=== PATIENT | male | born 1995 | race African-American/Black ===

== ENCOUNTER 2017-11-23 19:16 | Emergency (ER) | payer OTHER ==
[2017-11-23] MEDS ORDERED: LIDOCAINE 1% INJ-PF (10 MG/ML) 30 ML SDV INJ ONE (21:11)
--- NOTE | 2017-11-23 21:17 | ER Document Report ---
ED Wound - General Chief Complaint: Laceration Stated Complaint: FINGER LACERATION TO BOTH HANDS Time Seen by Provider: 11/23/17 20:43 Information source: Patient - HPI Patient complains to provider of: Laceration Occurred: Just prior to arrival Notes: Patient is here with complaints of finger laceration. He states that he was holding down a ramp when his friend cut the wrap with a razor blade excellently cutting his left index and right middle finger. Bleeding is controlled. No numbness, tingling, weakness. Tetanus is up-to-date. He denies any fevers. He denies any nausea, vomiting, diarrhea. He denies any other injuries. No chest pain or shortness of breath. Mild pain. No other complaints, no other injuries. Past Medical History - Social History Smoking Status: Never Smoker Chew tobacco use (# tins/day): No Frequency of alcohol use: None Drug Abuse: None Family History: Reviewed & Not Pertinent Patient has suicidal ideation: No Patient has homicidal ideation: No Renal/ Medical History: Denies: Hx Peritoneal Dialysis Review of Systems - Review of Systems -: Yes All other systems reviewed and negative Physical Exam - Vital signs Vitals: Temp Pulse BP Pulse Ox 98.8 F 87 146/84 H 100 11/23/17 19:38 11/23/17 19:38 11/23/17 19:38 11/23/17 19:38 - Notes Notes: GENERAL: alert, cooperative, nontoxic, no distress. HEAD: normocephalic, atraumatic EYES: conjunctiva pink without discharge, no external redness or swelling. EARS: no external swelling, no external redness NOSE: atraumatic, no external swelling MOUTH/THROAT: mucous membranes moist and pink NECK: soft, supple, full range of motion, no meningismus. CHEST: no distress, lungs clear and equal throughout. No wheezing, rales, rhonchi. CARDIAC: regular rate and rhythm, no murmur, normal capillary refill, normal pulses. BACK: full range of motion, no CVA tenderness. EXTREMITIES: 2 cm laceration to the left index finger distal phalanx on the palmar side. Bleeding is controlled. No foreign body. No flexor tendon laceration. Full flexion and extension of the finger. No redness. Normal cap refill and sensation. 2 cm laceration to the right middle finger distal phalanx. Palmar aspect. No foreign body or tendon laceration. Full range of motion. Normal cap refill and sensation. Bleeding control. NEURO: alert and oriented 3, no focal deficits, full range of motion of all extremities. PYSCH: appropriate mood, affect. Patient is cooperative. SKIN: pink, warm, dry, no rash. Course - Re-evaluation Re-evalutation: 11/23/17 22:36 Patient is nontoxic appearing with stable vitals. The patient states that he was holding something down his friend was cutting a wrap and externally cut his left index finger and his right middle finger. Left index finger he is having trouble to get stop bleeding. Right middle finger is not giving him much problems at all. His tetanus is up-to-date. Was going to suture both wounds. I sutured the left index finger and after that the patient states that he does not want his right middle finger sutured. I explained that he cannot come back at a later time and have the sutures that will be open for too long, he states that it is not that bad and he will let it heal up on its own. Patient had 4 sutures placed in the left index finger. Sterile dressings were applied to both lacerations. Patient has no foreign bodies or tendon lacerations. Patient will be discharged home with instructions take Tylenol Motrin as needed for pain. Follow-up in 10-12 days for suture removal, sooner for increasing pain, fever, numbness, tingling, weakness, redness, drainage, any further concerns. The patient is noted to have elevated blood pressure during today's emergency department visit. The patient was informed of this finding. The patient was instructed that this may be related to pre-hypertension and requires further evaluation with a primary care provider. The patient has no hypertensive symptoms at this time. The patient's emergency department workup and current diagnosis were explained to the patient and or family. Follow-up instructions were provided. Medications if prescribed were discussed. Instructions for when to return to the emergency department including specific worrisome symptoms were discussed with the patient and/or family. - Vital Signs Vital signs: Temp Pulse Resp BP Pulse Ox 98.8 F 87 146/84 H 100 11/23/17 19:38 11/23/17 19:38 11/23/17 19:38 11/23/17 19:38 Procedures - Laceration/Wound Repair Left index finger Wound length (cm): 2 Wound's Depth, Shape: Superficial, Linear Laceration pre-procedure: Sterile PPE donned, Sterile drapes applied, Shur- Clens applied Anesthetic type: 1% Lidocaine Wound explored: Clean, No foreign body removed Wound Repaired With: Sutures Suture Size/Type: 5:0, Ethilon Number of Sutures: 4 Layer Closure?: No Post-procedure wound care: Sterile dressing applied Post-procedure NV exam normal: Yes Complications: No Discharge - Discharge Clinical Impression: Laceration of left index finger Qualifiers: Encounter type: initial encounter Damage to nail status: without damage Foreign body presence: without foreign body Qualified Code(s): S61.211A - Laceration without foreign body of left index finger without damage to nail, initial encounter Laceration of right middle finger Qualifiers: Encounter type: initial encounter Damage to nail status: without damage Foreign body presence: without foreign body Qualified Code(s): S61.212A - Laceration without foreign body of right middle finger without damage to nail, initial encounter Condition: Stable Disposition: HOME, SELF-CARE Instructions: Laceration Care ([facility]) Additional Instructions: Clean wound twice a day with soap and water. Keep it covered 1 at work. Apply thin layer of bacitracin to the laceration. Follow-up in 10-12 days to have the sutures removed. Follow-up sooner for increasing pain, fever, redness, drainage, numbness, tingling, weakness, any further concerns. Your blood pressure was elevated during today's visit. Have this rechecked with your doctor. Forms: Elevated Blood Pressure, Smoking Cessation Education Referrals: [facility] [Provider Group] - Follow up as needed
[2017-11-23 23:18] VITALS: BP 119/75
== END 2017-11-23 23:17 | disposition home or self-care (01) ==
LOC: ER 19:16
PROC: 0HQGXZZ Repair Left Hand Skin, External Approach (ICD-10-PCS; principal; 2017-11-23)
DX: S61.211A Laceration without foreign body of left index finger without damage to nail, initial encounter (principal); S61.212A Laceration without foreign body of right middle finger without damage to nail, initial encounter; W27.8XXA Contact with other nonpowered hand tool, initial encounter; R03.0 Elevated blood-pressure reading, without diagnosis of hypertension
CPT/HCPCS: 99282; 12001; J3490

== ENCOUNTER 2018-04-08 08:24 | Emergency (ER) | payer OTHER ==
[2018-04-08] MEDS ORDERED: IBUPROFEN 800 MG TABLET PO ONE (09:35)
[2018-04-08] MEDS ORDERED: PENICILLIN V POTASSIUM 500 MG TABLET PO ONE (09:35)
--- NOTE | 2018-04-08 09:41 | ER Document Report ---
ED Oral Problem - General Chief Complaint: Facial Swelling Stated Complaint: FACIAL SWELLING Time Seen by Provider: 04/08/18 09:26 Mode of Arrival: Ambulatory Information source: Patient Notes: 23-year-old male presents to ED for facial swelling to the right upper jaw. He states the actual tooth does not hurt but it does hurt above the tooth. He is alert and oriented respirations regular unlabored speaking in full sentences walk with a even steady gait. TRAVEL OUTSIDE OF THE [place] IN LAST 30 DAYS: No - HPI Patient complains to provider of: Swelling of face Onset: Other - Monday Onset: Gradual Quality of pain: Throbbing Severity: Moderate Pain Level: 4 Swollen jaw/face: Mild Associated symptoms: Jaw pain Worsened by: Nothing Relieved by: Nothing Similar symptoms previously: Yes Recently seen / treated by doctor/dentist: No - Related Data Allergies/Adverse Reactions: No Known Allergies Allergy (Verified 04/08/18 08:33) Past Medical History - General Information source: Patient - Social History Smoking Status: Current Every Day Smoker Cigarette use (# per day): Yes - 1 cigarette a day Chew tobacco use (# tins/day): No Smoking Education Provided: Yes - 4 min Frequency of alcohol use: None Drug Abuse: None Occupation: [employer] Lives with: Family Family History: Reviewed & Not Pertinent Patient has suicidal ideation: No Patient has homicidal ideation: No - Past Medical History Cardiac Medical History: Reports: None Pulmonary Medical History: Reports: None EENT Medical History: Reports: None Neurological Medical History: Reports: None Endocrine Medical History: Reports: None Renal/ Medical History: Reports: None Malignancy Medical History: Reports None GI Medical History: Reports: None Musculoskeletal Medical History: Reports None Skin Medical History: Reports None Psychiatric Medical History: Reports: None Traumatic Medical History: Reports: None Infectious Medical History: Reports: None Past Surgical History: Reports: Hx Umbilical Hernia Review of Systems - Review of Systems Constitutional: No symptoms reported EENT: Mouth swelling, Dental problem Cardiovascular: No symptoms reported Respiratory: No symptoms reported Gastrointestinal: No symptoms reported Genitourinary: No symptoms reported Male Genitourinary: No symptoms reported Musculoskeletal: No symptoms reported Skin: No symptoms reported Hematologic/Lymphatic: No symptoms reported Neurological/Psychological: No symptoms reported Physical Exam - Vital signs Vitals: Temp Pulse Resp BP Pulse Ox 97.8 F 99 16 137/82 H 100 04/08/18 08:36 04/08/18 08:36 04/08/18 08:36 04/08/18 08:36 04/08/18 08:36 Interpretation: Normal - General General appearance: Appears well, Alert - HEENT Head: Normocephalic, Atraumatic Eyes: Normal Pupils: PERRL Ears: Normal External canal: Normal Tympanic membrane: Normal Sinus: Normal Nasal: Normal Mouth/Lips: Caries Mucous membranes: Normal Teeth diagram: 1 - Patient has swelling to the gums with mild swelling to the face. He states that he had a tooth capped and now he has pain behind the tooth. There is mild gingivitis in the area. Patient is [employer] and is been instructed to follow-up with the dentist [facility]. Pharynx: Normal Neck: Normal - Respiratory Respiratory status: No respiratory distress Chest status: Nontender Breath sounds: Normal Chest palpation: Normal - Cardiovascular Rhythm: Regular Heart sounds: Normal auscultation Murmur: No - Abdominal Inspection: Normal Distension: No distension Bowel sounds: Normal Tenderness: Nontender Organomegaly: No organomegaly - Back Back: Normal, Nontender - Extremities General upper extremity: Normal inspection, Nontender, Normal color, Normal ROM , Normal temperature General lower extremity: Normal inspection, Nontender, Normal color, Normal ROM , Normal temperature, Normal weight bearing. No: Sujey's sign - Neurological Neuro grossly intact: Yes Cognition: Normal Orientation: AAOx4 [place] Coma Scale Eye Opening: Spontaneous [place] Coma Scale Verbal: Oriented [place] Coma Scale Motor: Obeys Commands [place] Coma Scale Total: 15 Speech: Normal Motor strength normal: LUE, RUE, LLE, RLE Sensory: Normal - Psychological Associated symptoms: Normal affect, Normal mood - Skin Skin Temperature: Warm Skin Moisture: Dry Skin Color: Normal Course - Re-evaluation Re-evalutation: 04/08/18 21:27 Patient was treated with Penicillin VK and ibuprofen for his facial swelling and dental pain to the right upper jaw. He states there is some pain in 1 of his upper jaw tooth but there is no cavity noted on the outside. Presentation is most consistent with likely an infected tooth. Airway is patent. Vitals within normal limits. Patient is able swallow without any difficulty. There is no significant facial swelling. No evidence of Chuy angina, apical abscess , or airway obstruction. Patient will be started on antibiotics. I've instructed to follow-up with dentistry as earliest ability for definitive management. At this time will discharge with return precautions and follow-up recommendations. Verbal discharge instructions given a the bedside and opportunity for questions given. Medication warnings reviewed. Patient is in agreement with this plan and has verbalized understanding of return precautions and the need for primary care follow-up in the next 24-72 hours. - Vital Signs Vital signs: Temp Pulse Resp BP Pulse Ox 98.7 F 77 14 134/86 H 100 04/08/18 10:04/08/18 10:04/08/18 10:04/08/18 10:04/08/18 10:02 Discharge - Discharge Clinical Impression: Pain due to dental caries Condition: Stable Disposition: HOME, SELF-CARE Additional Instructions: TOOTHACHE: Your pain is due to dental decay. The tooth must be repaired in order for you to feel better. You will, therefore, be referred to a dentist. We do not have dentists on the staff at [facility]. Severe swelling or drainage around a tooth usually means a dental abscess. This also requires evaluation and treatment by the dentist, but antibiotics may be prescribed while awaiting dental treatment. You should be rechecked immediately if you develop major swelling of the face, increasing pain, a lump in the jaw or gums, headache, difficulty swallowing, or fever. PENICILLIN V K: You have been given a prescription for Penicillin VK. Your physician has determined that this is the best antibiotic for your condition. Pen VK can be taken with meals, however more of the antibiotic gets into the bloodstream if it's taken on an empty stomach. Penicillin usually has no side effects. However, allergy to penicillins is common. If you have had an allergic reaction to any drug of the penicillin family, you should never take any other penicillin. Notify your doctor at once if you develop hives, itching, swelling, faintness, or shortness of breath. FOLLOW-UP CARE: You have been referred for follow-up care to the dentists listed below. Call the dentists office for an appointment as you were instructed or within the next two days. If you experience worsening or a significant change in your symptoms, notify the physician immediately or return to the Emergency Department at any time for re-evaluation. [facility] [address] [place], [place] [facility] [address] [place] [address] [facility] [place] [address] [facility] [address] [facility] [address] [facility] [address] [email or web address] [address] [place] [address] Monday- 8:00am to 5:00 pm Will see patients from other [facility]. Charges based on income and family size and accepts Medicare, Medicaid, and Insurances Will pull molars [facility] [id number] Hours of Operation 8:00 am - 4:30 pm weekdays The following dental offices accept Medicaid: [facility] Dr. Montoya Dr. Diallo Dr. Riley Dr. Ely Bijan Snyder [place], and [place] [facility] Dr. Holt ([place]) Dr. Chung ([place]) [facility] Drs. Verma and Doug ([place]) Dr. Kraft ([place]) [facility] Dr. Isaacs ([place]) Drs. Almendarez and ([place]) Medicaid Care Line Prescriptions: Ibuprofen 800 mg PO BIDP PRN #14 tablet PRN Reason: Penicillin V Potassium [Penicillin Vk 500 mg Tablet] 500 mg PO BID #20 tablet Forms: Elevated Blood Pressure, Smoking Cessation Education
[2018-04-08 10:04] VITALS: BP 134/86
== END 2018-04-08 10:07 | disposition home or self-care (01) ==
LOC: ER 08:24
DX: K02.9 Dental caries, unspecified (principal); K05.10 Chronic gingivitis, plaque induced; R22.0 Localized swelling, mass and lump, head; F17.210 Nicotine dependence, cigarettes, uncomplicated; Z71.6 Tobacco abuse counseling; Z98.890 Other specified postprocedural states
CPT/HCPCS: 99283; 99406